=== PATIENT | male | born 1950 | race Caucasian/White ===

== ENCOUNTER 2016-11-23 17:46 | Emergency (ER) | payer MEDICARE ==
[~2016-11-23 17:46] MED LIST: Effient 10 MG TABLET PO ONE; Sodium Chloride 0.9% 1000 ML 1,000 ML IV ONE
[2016-11-23] MEDS ORDERED: BABY ASPIRIN 81 MG CHEW PO ONE (17:53)
[2016-11-23] MEDS ORDERED: Sodium Chloride 0.9% 1000 ML 1,000 ML IV STA (17:53)
--- NOTE | 2016-11-23 18:05 | ERPHSYRPT ---
- History of Present Illness Time Seen by Provider: 11/23/16 17:48 Historian: patient Physician History: PATENT WITH HISTORY OF CORONARY HEART DISEASE, PREVIOUS STENTS X 2 COMPLAINS OF SEVERE CHEST PAIN ONSET 90 MINUTES PRIOR TO ARRIVAL, PAIN RADIATES TO HIS JAW ASSOCIATED WITH DIAPHORESIS. STATES HE TOOK NITROGLYCERIN AT HOME AND 2- BABY ASPIRIN. STATES PAIN SCALE 10/10. Timing/Duration: today Activities at Onset: none Quality: sharpness Location: substernal Chest Pain Radiation: jaw Severity of Pain-Max: severe Severity of Pain-Current: severe Associated Symptoms: diaphoresis Prior Chest Pain/Cardiac Workup: cardiac cath (STENTS X 2) Nitro Today/Relief: 0.4 mg x 1, provided at home (4-BABY ASPIRIN GIVEN AT HOME) Aspirin Treatment Today: 81 mg x 2, provided at home - Review of Systems Constitutional: No Fever, No Chills Eyes: No Symptoms Ears, Nose, & Throat: No Symptoms Respiratory: No Symptoms, No Cough, No Dyspnea Cardiac: Chest Pain, Other (DIAPHORESIS), No Edema, No Syncope Abdominal/Gastrointestinal: No Abdominal Pain, No Nausea, No Vomiting, No Diarrhea Genitourinary Symptoms: No Symptoms, No Dysuria Musculoskeletal: No Back Pain, No Neck Pain Skin: No Rash Neurological: No Dizziness, No Focal Weakness, No Sensory Changes Psychological: No Symptoms Endocrine: No Symptoms All Other Systems: Reviewed and Negative - Physical Exam General Appearance: mild distress Eye Exam: PERRL/EOMI, eyes nml inspection, other (MARKED DIAPHORESIS) Ears, Nose, Throat Exam: normal ENT inspection, moist mucous membranes Neck Exam: normal inspection, non-tender, supple, full range of motion Respiratory Exam: normal breath sounds, lungs clear, No respiratory distress Cardiovascular Exam: regular rate/rhythm, normal heart sounds Gastrointestinal/Abdomen Exam: soft, normal bowel sounds, No tenderness, No mass Back Exam: normal inspection, No CVA tenderness, No vertebral tenderness Extremity Exam: normal inspection, normal range of motion Neurologic Exam: alert, oriented x 3, cooperative, normal mood/affect, sensation nml, No motor deficits Skin Exam: normal color, warm, dry SpO2 Interpretation: normal SpO2: 98 - Course EKG Interpreted by Me: RATE, Sinus Rhythm, NORMAL AXIS, Other (3RD DEGREE HEART BLOCK) - Radiology Exams Chest X-ray Interpretation: Interpreted by me (RIGHT BASILAR INFILTRATE) Ordered Tests: Active Orders 24 hr Category Date Time Status Cruise Staff Member STAT Care 11/23/16 17:53 Ordered EKG-ER Only STAT Care 11/23/16 17:53 Ordered IV Insertion STAT Care 11/23/16 17:53 Ordered Oxygen-ED Only NASAL CANNULA 2 lpm Care 11/23/16 17:53 Ordered CHEST 1 VIEW (PORTABLE) Stat Exams 11/23/16 17:54 Ordered CBC W DIFF Stat Lab 11/23/16 17:53 Ordered CMP Stat Lab 11/23/16 17:53 Ordered PROTIME WITH INR Stat Lab 11/23/16 17:53 Ordered TROPONIN Q3H Lab 11/23/16 18:00 Ordered TROPONIN Q3H Lab 11/23/16 21:00 Ordered TROPONIN Q3H Lab 11/24/16 00:00 Ordered TROPONIN Q3H Lab 11/24/16 03:00 Ordered TROPONIN Q3H Lab 11/24/16 06:00 Ordered Medication Summary Generic Name Dose Route Start Last Admin Trade Name Freq PRN Reason Stop Dose Admin Aspirin 324 mg 11/23/16 17:53 Baby Aspirin 81 Mg Chew PO 11/23/16 17:54 STAT ONE Sodium Chloride 1,000 mls @ 999 mls/hr 11/23/16 17:53 Sodium Chloride 0.9% 1000 Ml IV 11/23/16 18:53 .Q1H1M STA - Progress Progress Note: 11/23/16 18:08 PATIENT PLACED ON STEMI PROTOCOL OPTION A, EKG C/W SINUS BRADYCARDIA RATE 40'S, INFERIOR ST SEGMENT ELEVATION WITH 3RD HEART BLOCK, PATIENT GIVEN EFFIENT 60MG ORALLY, 4 BABY ASPIRIN BP 66/34 INITIALLY, FLUID BOLUS REPEAT BP 88/39 UPON TRANSFER TO [facility] Discussed with : Other (DISCUSSED WITH DR PENN [id number] OF [facility] , ACCEPTS TRANSFER VIA [facility]) - Departure Time of Disposition: 18:00 Departure Disposition: Transfer Clinical Impression: Acute inferior myocardial infarction Condition: Serious Critical Care Time: Yes Critical Care Time(excluding separately billable procedures): ___ minutes (15)
[2016-11-23 18:06] VITALS: BP 66/37
[2016-11-23 18:10] LABS: INR 1.06 (0.8-3.0); PROTIME 11.8 SECONDS (8.83-12.87)
[2016-11-23 18:11] VITALS: PULSE 47; O2SAT 98
[2016-11-23 18:14] LABS: Mean Cell Volume 91.3 fl (78-100); Mean Corpuscular Hemoglobin 29.5 pg (26-32); Mean Platelet Volume 12.4 fl (6-9.5); Platelet Count 235 K/mm3 (150-450); Red Blood Count 5.83 M/mm3 (4.1-5.6); White Blood Count 16.3 K/mm3 (4.0-10.5)
[2016-11-23 18:23] LABS: ALBUMIN 3.7 g/dL (3.4-5.0); ANION GAP 16.6 MEQ/L (5-15); BILIRUBIN,TOTAL 0.4 mg/dL (0.2-1.0); Total Protein 7.3 gm/dL (6.4-8.2)
[2016-11-23 19:11] LABS: ATYPICAL LYMPHS 7 %; BAND 3 % (0.0-2.0); Eosinophil 3 % (0.00-3.0); Platelet Estimate NORMAL (NORMAL); Total Cells Counted 100
--- NOTE | 2016-11-24 08:34 | XRAY ---
Indication: Chest pain. Comparison: None Portable chest hyperinflated with left base not completely included. There is right base infiltrate/atelectasis with remaining lungs clear. Heart is not enlarged. Bony thorax intact with mild osteopenia and degenerative changes. Impression: Limited hyperinflated chest with right base infiltrate/atelectasis. Correlate clinically.
== END 2016-11-23 18:00 | disposition short-term general hospital (02) ==
LOC: ED 17:46
DX: I21.19 ST elevation (STEMI) myocardial infarction involving other coronary artery of inferior wall (principal); R07.89 Other chest pain; R61 Generalized hyperhidrosis
CPT/HCPCS: 36000; 36415; 71010; 80053; 84484; 85025; 85610; 93005; 93041; 96360; 96365; 99285; A9270-GY